=== PATIENT | male | born 1995 | race Caucasian/White ===

== ENCOUNTER 2018-12-31 23:27 | Emergency (ER) | payer BC, SELFPAY ==
[2018-12-31 23:35] VITALS: BP 143/95; PULSE 78; RESP 20; TEMP 36.6; O2SAT 98
[2018-12-31] MEDS: ALBUTEROL/IPRATROPIUM 3 ML AMPUL INH (23:57)
[2019-01-01] MEDS: ALBUTEROL/IPRATROPIUM 3 ML AMPUL INH ×2 (00:05→00:10)
--- NOTE | 2019-01-01 00:10 | ED.URI ---
HPI - URI/Sore Throat General Chief Complaint: Upper Respiratory Symptoms Stated Complaint: trouble breathing since last night Time Seen by Provider: 01/01/19 00:11 Source: patient Mode of arrival: Ambulatory Limitations: no limitations History of Present Illness HPI Narrative: The patient developed dyspnea and wheezing yesterday. Symptoms persisted today. He is not a tobacco user. He has no history of asthma. He has had prior, lesser episodes like this. He has no productive cough, no recent illness. He has slight chest discomfort when he is wheezing, none now. He has no history of cardiac issues. He has no orthopnea or peripheral edema. His mother has asthma. He does have GERD. He takes only times. His stomach has not been bothering him recently. He has no ear pressure, sinus drainage, rhinorrhea or sore throat. Related Data Previous Rx's Medication Instructions Recorded pantoprazole [Protonix] 20 mg PO BEDTIME 28 Days tab 01/01/19 Allergies Allergy/AdvReac Type Severity Reaction Status Date / Time No Known Drug Allergies Allergy Verified 12/31/18 23:58 Review of Systems Review of Systems ROS Unobtainable: All systems reviewed & are unremarkable except as noted in HPI and below Constitutional Constitutional: Denies chills, Denies fever(s), Denies headache(s) and Denies weakness ENT Ears, Nose, Mouth, and Throat: Denies change in voice, Denies headache(s), Denies nasal congestion, Denies neck pain, Denies post nasal drip, Denies sinus pain and Denies sore throat Cardiovascular Cardiovascular: Reports dyspnea Comments: Slight chest discomfort as described in HPI Respiratory Respiratory: Reports cough, Reports dyspnea and Reports wheezing Gastrointestinal Gastrointestinal: Denies abdominal pain, Denies change in bowel habits, Denies diarrhea, Denies nausea and Denies vomiting Musculoskeletal Musculoskeletal: Denies back pain, Denies neck pain and Denies numbness Integumentary/Breasts Skin/Breast: Denies pruritus, Denies erythema, Denies rash and Denies wounds Neurologic Neurologic: Denies headache(s), Denies numbness and Denies weakness Allergic/Immunologic Allergic/Immunologic: Reports wheezing Patient History Medical History Gastroesophageal reflux disease (Acute) RAD (reactive airway disease) (Acute) Surgical History (Updated 01/01/19 @ 01:38 by Stuart Franklin MD) No significant past surgical history (Acute) Social History Smoking Status: Never smoker Substance Use Type: does not use Exam Initial Vital Signs Initial Vital Signs: Vital Signs Temperature 97.9 F 12/31/18 23:35 Pulse Rate 78 12/31/18 23:35 Respiratory Rate 20 12/31/18 23:35 Blood Pressure 143/95 H 12/31/18 23:35 Pulse Oximetry 98 12/31/18 23:35 Const General: cooperative and well developed Nutritional Appearance: well nourished Orientation: alert, awake, oriented x3 and not confused HENMT Head: normocephalic and atraumatic Ears: external ears normal and TM's normal bilaterally Nose: external nose normal Face and sinus: sinuses nontender and face symmetric Mouth: oral mucosae normal Throat: posterior oropharynx normal Chest Chest: normal inspection of the chest Resp Auscultation: no rales, no rhonchi and wheezes scattered wheezes Cardio Rate: regular rate Rhythm: regular rhythm Heart Sounds: S1 normal, S2 normal, no click, no gallops, no murmurs and no rubs Pulses: normal peripheral pulses GI Inspection: non-distended Palpation: soft, no hepatosplenomegaly, No guarding and No tender Auscultation: normal bowel sounds Skin General: no rashes or lesions noted and No petechiae Neuro General: alert, oriented x3, gait normal and no focal motor deficits Speech: speech normal Extrem General: no clubbing, cyanosis or edema Course Course Course Narrative: The wheezes cleared with 3 DuoNeb was. He was dispensed albuterol for home use. I started no Protonix for GERD, thinking this is the likely etiology of the RAD. He has a physician attached to [facility]. I advised follow up with his physician for further evaluation. Orders Ordered: ED Orders 01/01/19 EKG-12 Lead Stat 01/01/19 00:22 XR chest 2V Stat Discontinued Medications Albuterol (Ventolin Hfa Prepack) 1 box MISC SEEINSTR ONE Stop: 01/01/19 00:23 Last Admin: 01/01/19 00:30 Dose: 1 box Documented by: TSHARP Albuterol/Ipratropium (Duoneb) 3 ml INH NOW ONE Stop: 12/31/18 23:51 Last Admin: 12/31/18 23:57 Dose: 3 ml Documented by: RAMILA Albuterol/Ipratropium (Duoneb) 3 ml INH NOW ONE Stop: 01/01/19 00:04 Last Admin: 01/01/19 00:05 Dose: 3 ml Documented by: YAMILKA Albuterol/Ipratropium (Duoneb) 3 ml INH NOW ONE Stop: 01/01/19 00:09 Last Admin: 01/01/19 00:10 Dose: 3 ml Documented by: YAMILKA Pantoprazole Sodium (Protonix) 20 mg PO NOW ONE Stop: 01/01/19 00:23 Last Admin: 01/01/19 00:54 Dose: 20 mg Documented by: ANTONI Vital Signs Vital signs: Vital Signs - 8 hr 12/31/18 23:35 01/01/19 00:28 Temperature 97.9 F Pulse Rate 78 108 H Respiratory Rate 20 20 Blood Pressure 143/95 H Blood Pressure [Left Arm] 128/85 Pulse Oximetry 98 98 MDM - URI/Sore Throat Imaging Data Chest x-ray: My impression: No acute process ECG Data Attestation: I personally reviewed and interpreted this ECG as follows: (Normal sinus rhythm rate 72 beats per minute. Early repolarization. Right ventricular conduction delay. No ectopy. No arrhythmia.) Discharge Plan Departure Patient Disposition: Home Clinical Impression: RAD (reactive airway disease) Qualifiers: Asthma severity: mild Asthma persistence: intermittent Asthma complication type: uncomplicated Qualified Code(s): J45.20 - Mild intermittent asthma, uncomplicated Gastroesophageal reflux disease Qualifiers: Esophagitis presence: without esophagitis Qualified Code(s): K21.9 - Gastro-esophageal reflux disease without esophagitis Instructions: DI for Gastroesophageal Reflux Disease (GERD), DI for Reactive Airway Disease-Adult Activity Restrictions/Additional Instructions: Protonix 20 mg daily. Albuterol 2 puffs every 4 hours as needed for wheezing/difficulty breathing. Follow-up with her physician at the [facility] for further evaluation. Return to the ER as needed. Prescriptions: New pantoprazole [Protonix] 20 mg tablet,delayed release (DR/EC) 20 mg PO BEDTIME 28 Days RF: 0
--- NOTE | 2019-01-01 00:22 | DI.RAD.S_ITS ---
PROCEDURE: XR CHEST 2V INDICATIONS: Dyspnea TECHNIQUE: 2 views of the chest were acquired. COMPARISON: None. FINDINGS: Surgical changes and devices: None. Lungs and pleura: Lungs are clear. No pleural effusions or pneumothorax. Mediastinum: Mediastinal contours are normal. Heart size is normal. Bones and chest wall: No suspicious bony abnormalities. Soft tissues appear unremarkable. IMPRESSION: No acute cardiopulmonary disease process. Dictated by: Stefanie Ma MD, PhD on 01/01/2019 at 7:59 Approved by: Stefanie Ma MD, PhD on 01/01/2019 at 7:59
[2019-01-01 00:28] VITALS: BP 128/85; PULSE 108; RESP 20; O2SAT 98
[2019-01-01] MEDS: ALBUTEROL HFA PREPACK 1 BOX MISC (00:30)
[2019-01-01] MEDS: PANTOPRAZOLE 20 MG TABLET PO (00:54)
[2019-01-01 01:57] VITALS: BP 130/80; PULSE 98; RESP 18; O2SAT 100
== END 2019-01-01 01:35 | disposition home or self-care (01) ==
PROVIDERS: Emergency Provider Emergency Medicine
DX: J45.20 Mild intermittent asthma, uncomplicated (principal); K21.9 Gastro-esophageal reflux disease without esophagitis
CPT/HCPCS: 71046; 93005; 94150; 94640; 99283; 99284